=== PATIENT | male | born 1960 | race Caucasian/White ===

== ENCOUNTER 2016-10-13 08:45 | Outpatient (CLI) | payer OTHER ==
[2016-10-13 14:04] LABS: Potassium 4.3 mmol/L (3.5-5.1); Sodium 138 mmol/L (136-145)
[2016-10-13 14:05] LABS: Carbon Dioxide 26 mmol/L (22-29); Chloride 105 mmol/L (98-107)
[2016-10-13 14:08] LABS: Anion Gap 11 mmol/L (10-20)
[2016-10-13 14:09] LABS: Alkaline Phosphatase 54 U/L (40-150); BUN (Urea Nitrogen) 14 mg/dL (8.4-25.7); Calc. Creatinine Clearance 0 mL/min (70-130); Calcium 9.1 mg/dL (7.8-10.44); Cholesterol 163 mg/dL (< 200 Desired); Estimated GFR-MDRD 68; Globulin 3.1 g/dL (2.4-3.5); Glucose 117 mg/dL (70-105); Protein, Total 7.1 g/dL (6.0-8.3)
[2016-10-13 14:10] LABS: ALT (SGPT) 43 U/L (8-55); AST (SGOT) 32 U/L (5-34); HDL Cholesterol 33 mg/dL (>60 Neg Risk); Triglycerides 136 mg/dL (Less than 150)
[2016-10-13 14:11] LABS: Cardiac Risk 4.9 (Less than 4.5); LDL Cholesterol, Calculated 103 mg/dL
[2016-10-13 14:12] LABS: Hemoglobin A1c 6.1 % (4.0-6.0)
[2016-10-13 14:13] LABS: Hemoglobin 16.1 g/dL (14.0-18.0); Mean Corpuscular Hemoglobin 27.7 pg (27.0-31.0); Mean Corpuscular Volume 84.1 fL (80.0-94.0); Red Blood Cell (RBC) Count 5.81 mill/uL (4.70-6.10)
[2016-10-13 14:14] LABS: %Lymphocytes 18.7 % (21.0-51.0); %Monocytes 11.4 % (0.0-10.0); %Neutrophils 65.7 % (42.0-75.0); Mean Corpuscular HGB CONC 32.9 g/dL (32.0-36.0); Mean Platelet Volume 9.8 fL (7.4-10.4); Platelet Count 194 thou/uL (130-400); RBC Distribution Width 12.8 % (11.5-14.5)
[2016-10-13 14:15] LABS: %Basophils 1.5 % (0.0-1.0); %Eosinophils 2.7 % (0.0-10.0)
[2016-10-14 17:52] LABS: Albumin (w/Testosterone Panel) 4.2 g/dL
[2016-10-14 18:17] LABS: Sex Hormone Binding Globulin 18.6 nmol/L (11-78); Testosterone, Free 109.1 pg/mL (47-244); Testosterone, Total 397.5 ng/dL (221-716)
[2016-10-16 09:13] LABS: % Free PSA 31.4 % (.); Total PSA 0.7 ng/mL (0.0-4.0)
== END 2016-10-13 08:46 | disposition home or self-care (01) ==
LOC: MADLABBHPM 08:45
PROVIDERS: ATTEND Family Medicine
DX: E78.00 Pure hypercholesterolemia, unspecified (principal); E29.1 Testicular hypofunction; R73.02 Impaired glucose tolerance (oral)
CPT/HCPCS: 36415; 80053; 80061; 83036; 84153; 84154; 84270; 84403; 85025

== ENCOUNTER 2017-06-22 10:55 | Outpatient (CLI) | payer OTHER ==
--- NOTE | 2017-06-22 13:28 | RAD ---
LUMBAR SPINE THREE VIEWS: HISTORY: Back pain. FINDINGS: There are five lumbar type vertebrae. The pedicles are intact. Allowing for minimal physiologic wed ging of the L1 vertebral body, vertebral body heights are maintained. There is minimal degenerative retrolisthesis of the L2-L3 and the L3-L4 levels and minimal degenerative spondylolisthesis at the robyn mbosacral junction. Osteophytosis is present throughout the vertebral bodies and facets. No acute f racture or dislocation. IMPRESSION: Lumbar spondylosis. No evidence of compression fracture. POS: [facility]
== END 2017-06-22 10:56 | disposition home or self-care (01) ==
LOC: MADRAD 10:55
PROVIDERS: ATTEND Family Medicine
DX: S39.012D Strain of muscle, fascia and tendon of lower back, subsequent encounter (principal); M47.896 Other spondylosis, lumbar region
CPT/HCPCS: 72100